=== PATIENT | male | born 1990 | race Caucasian/White ===

== ENCOUNTER → 2025-03-11 13:45 | Outpatient (REF) | payer OTHER, SELFPAY | LOC: RAD 13:45 | PROVIDERS: ATTENDING PHYSICIAN Nurse Practitioner | DX: M25.561 Pain in right knee (principal) | CPT/HCPCS: 73564 ==

== ENCOUNTER → 2025-05-04 20:45 | Outpatient (REF) | payer OTHER, SELFPAY | LOC: MRI 3T 20:45 | PROVIDERS: ATTENDING PHYSICIAN Specialist; FAMILY PHYSICIAN Hospitalist | DX: M25.561 Pain in right knee (principal) | CPT/HCPCS: 73721 ==